=== PATIENT | male | born 1955 | race Caucasian/White ===

== ENCOUNTER 2024-01-14 13:43 | Outpatient (CLI) | payer BC ==
--- NOTE | 2024-01-15 22:16 | XRAY Report ---
PROCEDURE: Hip w/Pelvis 2-3V LT INDICATIONS: LOW BACK PAIN TECHNIQUE: 2 views of the hip were acquired. COMPARISON: None. FINDINGS: Bones: No fractures or dislocations. Severe left and moderate to severe right femoroacetabular join t space narrowing and juxta-articular osteophytosis. Left femoroacetabular [id number]. No suspiciou s bony lesions. Soft tissues: No suspicious soft tissue calcifications or masses. Vascular calcifications. IMPRESSION: 1.No acute bony abnormality. If there is high clinical suspicion for a radiographically occult fractu re, recommend cross-sectional imaging for further evaluation. 2.Severe left and moderate to severe right hip osteoarthritis. Reviewed by: Javy Avila MD on 01/15/2024 10:15 PM PDT Approved by: Javy Avila MD on 01/15/2024 10:15 PM PDT Station ID: [id number]
--- NOTE | 2024-01-15 22:18 | XRAY Report ---
PROCEDURE: Lumbar Spine 2-3V INDICATIONS: LOW BACK PAIN TECHNIQUE: 3 views of the lumbar spine were acquired. COMPARISON: None. FINDINGS: Surgical change: None. Bones: 5 [id number] vertebrae are present. Straightening of the normal lumbar lordosis. No vert ebral body compression fractures. No suspicious bony lesions. Retrolisthesis of L2 on L3 and L3 on L 4 of approximately 3 mm. Moderate to severe multilevel degenerative changes with osteophytosis, disc height loss and facet arthropathy, worse at L5-S1 where there is severe osseous neural foraminal narr owing. Soft tissues: Overlying bowel gas pattern is normal. No suspicious soft tissue calcifications. Exte nsive calcification of the abdominal aorta. Infrarenal abdominal aorta appears aneurysmal measuring 3 .6 cm. IMPRESSION: 1.No acute fracture or traumatic subluxation. 2.Moderate to severe multilevel degenerative changes, worse at L5-S1. 3.Infrarenal abdominal aorta appears aneurysmal measuring 3.6 cm. Recommend an ultrasound for further evaluation. Reviewed by: Javy Avila MD on 01/15/2024 10:17 PM PDT Approved by: Javy Avila MD on 01/15/2024 10:17 PM PDT Station ID: [id number]
== END 2024-01-14 13:44 | disposition home or self-care (01) ==
LOC: DI 13:43
PROVIDERS: ATTEND Physician Assistant
DX: M16.0 Bilateral primary osteoarthritis of hip (principal); M43.16 Spondylolisthesis, lumbar region; M47.816 Spondylosis without myelopathy or radiculopathy, lumbar region; M47.817 Spondylosis without myelopathy or radiculopathy, lumbosacral region; M48.07 Spinal stenosis, lumbosacral region